=== PATIENT | male | born 1935 | race Caucasian/White ===

== ENCOUNTER → 2016-06-16 | Outpatient (CLI) | payer OTHER ==
[~2016-06-16] MED LIST: IOPAMIDOL (ISOVUE-M 200) 20 ML VIAL IV ONE; LIDOCAINE 1% 30 ML SDV ONE; NA BICARBONATE 50 MEQ/50 ML VIAL ONE
--- NOTE | 2016-06-16 11:09 | DX ---
Thoracic Myelogram 1010 hours History: Right mid to upper back pain and shoulder pain. Evaluate for possible thoracic spinal disk p athology. Crosscutting Measure #226 : Current tobacco user no. Witnessed Consent: Witnessed informed consent was obtained after the risks, benefits, and alternativ es of thoracic myelogram were explained to the patient and all questions were answered. Fluoroscopy time: 1.0 minutes, Estimated dose: 20.4 mGy Technique: With the patient in prone oblique position, the patient's back was prepped with betadine a nd alcohol solution. Lidocaine with bicarbonate was used as local anesthesia. Then, with fluoroscopic guidance, a 22-gauge spinal needle was advanced into the L3-L4 interlaminar space. Clear cerebrospin al fluid was identified. Then, 15 mL of [id number] were placed under fluoroscopy into the thecal sa c. Needle was removed. Manual hemostasis was achieved. Patient tolerated the procedure well without i mmediate complications. Digital images were obtained in multiple projections. Patient disposition: Discharge instructions were given. No immediate complications. Myelogram Findings: There is no evidence of filling defect within the thoracic spinal sac. No signifi cant disk bulge is appreciated. The thoracic spinal cord is grossly normal in appearance. Impression: Normal thoracic myelogram. Subsequent CT imaging was performed.
--- NOTE | 2016-06-16 17:17 | CT ---
CT Thoracic Spine Post Myelogram 1043 hours. History: Back pain with left shoulder radiculopathy (M 25.512, R 29.898, M 54.6, M 54.13) Technique: Spiral imaging was obtained from the cervical spine through the thoracic spine following m yelogram procedure. Images were reconstructed down to 1.25 mm slice thickness and reviewed in multipl e planes. Dose reduction techniques were utilized. Findings: At C7-T1 there appears to be a left posterior lateral disk protrusion that causes compressi on upon the left anterolateral spinal sac and possibly into the left neuroforamen. There is no associ ated spinal stenosis. The right neural foramen appears to be patent. Remainder the visualized cervica l spine is normal in appearance. There is no evidence of disk bulge or protrusion associated with the thoracic spine. Mild hypertrophi c osteophytes are noted along the left anterior aspect of T3-T4 and T4-T5 as well as right anterior a spect of T11-T12. There is no significant loss of disk height throughout the thoracic spine. No marge s are seen within the thoracic spinal canal. The thoracic spinal cord has a normal contour. 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 There are some scattere d calcified plaques evolving the aortic arch and descending thoracic aorta without additional dilatat ion or aneurysm. There is some calcified plaque involving the proximal left subclavian artery and pro ximal right subclavian artery. Calcified plaques are also noted involving the left proximal coronary arterial system. Pacemaker leads are in position. The visualized lung parenchyma in the paraspinal lo cation demonstrates scattered subpleural blebs and mild emphysematous change. No pulmonary nodules ar e identified in the visualized portions of the chest. There are no lytic or sclerotic osseous lesions . No lymphadenopathy is appreciated. There is a small calcified right hilar node. Impression: 1. Left posterior lateral disk protrusion suspected at C7-T1 that appears to contribute to left-sided neural foraminal stenosis. 2. No significant disk bulge or protrusion associated with the thoracic spine as detailed above. 3. Normal-appearing thoracic spinal cord. 4. Incidental subpleural blebs identified in the visualized lung parenchyma with mild underlying emph ysematous change suspected.
== END ==
LOC: FIMAGING 08:05
PROVIDERS: ATTEND Physician Assistant
PROC: 3E0S3KZ Introduction of Other Diagnostic Substance into Epidural Space, Percutaneous Approach (ICD-10-PCS; principal; 2016-06-16)
PROC: B01BYZZ Fluoroscopy of Spinal Cord using Other Contrast (ICD-10-PCS; 2016-06-16)
DX: M54.6 Pain in thoracic spine (principal); M25.512 Pain in left shoulder; R29.898 Other symptoms and signs involving the musculoskeletal system; M54.13 Radiculopathy, cervicothoracic region
CPT/HCPCS: 62284; 72129; 72255; Q9966